=== PATIENT | male | born 1950 | race Hispanic/Latino ===

== ENCOUNTER 2018-07-25 16:37 | Emergency (ER) | payer MEDICAID, MEDICARE, OTHER ==
[~2018-07-25] VITALS: Ht 162.6 cm; Wt 68.0 kg
[2018-07-25 16:37] VITALS: BP 162/98
[~2018-07-25 16:37] MED LIST: ASPIR 8181 MG ORAL; ATORVASTATIN CA20 MG ORAL; CARVEDILOL25 MG ORAL; COUMADIN3 MG ORAL; DOCUSATE SODIU100 MG ORAL; FLUOXETINE HCL40 MG ORAL; FUROSEMIDE20 M1 ORAL; HUMALOG100 UNIT/4 SUBQ; LANTUS100 UNIT/2 SUBQ; LISINOPRIL10 MG ORAL; METFORMIN HCL500 M1 ORAL; NKM; PLAVIX75 MG ORAL; aspirin; insulin; lasix; lisinopril; warfarin
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
[2018-07-25 17:14] LABS: HEMATOCRIT 47.6 % (42.0-52.0); HEMOGLOBIN 16.3 G/DL (14.2-18.0); MEAN CORPUSCULAR VOLUME 91 FL (80-99); PLATELET COUNT 210 K/UL (150-450); RED CELL DISTRIBUTION WIDTH 10.8 % (11.6-14.8); WHITE BLOOD COUNT 11.7 K/UL (4.8-10.8)
[2018-07-25 17:18] LABS: ANION GAP 8 mmol/L (5-15); BLOOD UREA NITROGEN 23 mg/dL (7-18); CALCIUM 9.5 MG/DL (8.5-10.1); CARBON DIOXIDE 29 MMOL/L (21-32); CHLORIDE 105 MMOL/L (98-107); CREATININE 1.1 MG/DL (0.55-1.30); POTASSIUM 3.6 MMOL/L (3.5-5.1); SODIUM 142 MMOL/L (136-145)
[2018-07-25 17:19] LABS: AMMONIA < 10 umol/L (11-32)
[2018-07-25 17:34] LABS: ALANINE AMINOTRANSFERASE 26 U/L (12-78); ALBUMIN 3.9 G/DL (3.4-5.0); ALKALINE PHOSPHATASE 61 U/L (46-116); ASPARTATE AMINO TRANSFERASE 22 U/L (15-37); BILIRUBIN,TOTAL 0.5 MG/DL (0.2-1.0); CREATINE KINASE 167 U/L (26-308)
[2018-07-25 18:05] LABS: APPEARANCE,URINE SLIGHTLY CLOUDY; BILIRUBIN, URINE NEGATIVE (NEGATIVE); COLOR,URINE PALE YELLOW; GLUCOSE, URINE (UA) 3+ (NEGATIVE); KETONES,URINE 1+ (NEGATIVE); LEUKOCYTE ESTERASE ,URINE 1+ (NEGATIVE); NITRITE,URINE NEGATIVE (NEGATIVE); PH,URINE 5 (4.5-8.0); PROTEIN,URINE 1+ (NEGATIVE); UROBILINOGEN,URINE NORMAL MG/DL (0.0-1.0)
[2018-07-25] MEDS ORDERED: TRAMADOL HCL50 MG ORAL (19:51)
[2018-07-25] MEDS ORDERED: traMADol 50mg tab ORAL ONE (20:15)
[2018-07-25 21:14] VITALS: BP 156/91
--- NOTE | 2018-07-26 08:12 | Diagnostic Imaging Report ---
Indication: Altered mental status Technique: Continuous helical CT scanning of the head was performed utilizing automated exposure control without intravenous contrast material. Axial and coronal reconstructions were obtained. Comparison: 03/12/2013 CT dose: Total DLP 1383.12 mGycm; CTDI vol 70.38 mGy Findings: There is no acute intracranial hemorrhage, mass effect or cortical edema. The ventricles, cisterns and sulci are mildly prominent consistent with mild atrophy. Periventricular hypoattenuation is seen, a nonspecific finding. Atherosclerotic vascular calcifications are noted. There is no depressed calvarial fracture. No focal soft tissue swelling/scalp hematoma identified. There is partial opacification of the bilateral inferior maxillary sinuses. This is noted on the prior exam. Remainder of the imaged paranasal sinuses are clear. Mastoid air cells are clear. IMPRESSION: No evidence of acute intracranial hemorrhage, mass effect or cortical edema. MRI may be obtained for more sensitive evaluation as clinically indicated. Mild atrophy and chronic/senescent changes. Sinus disease involving the bilateral maxillary sinuses. This corresponds with the statrad preliminary report. The CT scanner at [facility] is accredited by the [employer] and the scans are performed using protocols designed to limit radiation exposure to as low as reasonably achievable to attain images of sufficient resolution adequate for diagnostic evaluation.
--- NOTE | 2018-07-26 15:10 | Diagnostic Imaging Report ---
Indication: Altered mental status Technique: XRAY Chest 1v Comparison: None Findings: Heart size and mediastinal contours are within normal limits for AP technique. There is no focal consolidation, pneumothorax or pleural effusion. Degenerative changes noted in the spine. Osseous structures demonstrate no acute abnormality. Impression: No radiographic evidence of acute cardiopulmonary disease.
--- NOTE | 2018-07-26 19:55 | Cardiology Report ---
APPROVED REPORT EKG Measurement Heart [id number] ME [id number] Normal sinus rhythm Septal infarct, age undetermined Abnormal ECG
== END 2018-07-25 21:19 | disposition home or self-care (01) ==
LOC: EDBD 16:37 → CANBEDREQ 17:21 → EMR 18:27
DX: E11.649 Type 2 diabetes mellitus with hypoglycemia without coma (principal); S20.212A Contusion of left front wall of thorax, initial encounter; V18.0XXA Pedal cycle driver injured in noncollision transport accident in nontraffic accident, initial encounter; Y93.55 Activity, bike riding; I10 Essential (primary) hypertension; Y92.9 Unspecified place or not applicable
CPT/HCPCS: 36415; 70450; 71045; 80053; 80307; 80329; 81003; 82140; 82550; 83880; 84443; 84484; 85007; 85025; 85651; 93005; 96360; 96361; 99284